=== PATIENT | female | born 1990 | race Caucasian/White ===

== ENCOUNTER 2020-06-26 19:34 | Emergency (ER) | payer BC, OTHER ==
--- NOTE | 2020-06-26 19:45 | ED ---
Abdominal Pain HPI - General Chief Complaint: Abdominal Pain Stated Complaint: Abd Pain Time Seen by Provider: 06/26/20 19:43 Source: patient Mode of arrival: wheelchair Limitations: no limitations - History of Present Illness Initial Comments: 30-year-old female presenting to the emergency department with a chief complaint of abdominal pain. Patient reports the pain has been present for the past couple of years. Patient reports the pain feels like a burning sensation in epigastric region and radiates to her throat particularly at night whenever she goes to bed. Patient reports waking up in the morning with a sore throat and vomits a few times per week. Patient states she saw her primary care physician told her that she might have a stomach ulcer. Patient denies drinking carbonated drinks or coffee. However, patient states she drinks about 6 vodka drinks per day, sometimes a more. Patient denies any back pain, dysuria, urgency or frequency. - Related Data Previous Rx's Medication Instructions Recorded Pantoprazole Sodium [Protonix] 20 mg PO DAILY #30 tablet. 06/26/20 Allergies Allergy/AdvReac Type Severity Reaction Status Date / Time Penicillins Allergy Unknown Verified 06/26/20 20:55 Childhood Review of Systems ROS Statement: Those systems with pertinent positive or pertinent negative responses have been documented in the HPI. ROS Other: All systems not noted in ROS Statement are negative. Past Medical History Past Medical History: No Reported History History of Any Multi-Drug Resistant Organisms: None Reported Past Surgical History: No Surgical Hx Reported Past Psychological History: No Psychological Hx Reported Smoking Status: Never smoker Past Alcohol Use History: Occasional Past Drug Use History: None Reported General Exam Limitations: no limitations General appearance: alert, in no apparent distress Head exam: Present: atraumatic, normocephalic, normal inspection Eye exam: Present: normal appearance, PERRL, EOMI Pupils: Present: normal accommodation ENT exam: Present: normal exam, normal oropharynx, mucous membranes moist Neck exam: Present: normal inspection, full ROM. Absent: tenderness Respiratory exam: Present: normal lung sounds bilaterally. Absent: respiratory distress, wheezes, rales Cardiovascular Exam: Present: regular rate, normal rhythm, normal heart sounds GI/Abdominal exam: Present: soft, tenderness (Epigastric tenderness). Absent: distended, guarding, rebound, rigid Extremities exam: Present: normal inspection, full ROM, normal capillary refill Back exam: Present: normal inspection, full ROM. Absent: tenderness, CVA tenderness (R), CVA tenderness (L) Neurological exam: Present: alert, oriented X3 Psychiatric exam: Present: normal affect, normal mood Skin exam: Present: warm, dry, intact, normal color Course Vital Signs 06/26/20 06/26/20 06/26/20 19:35 20:18 21:32 Temperature 98.7 F 98.5 F Pulse Rate 99 89 77 Respiratory 19 17 16 Rate Blood Pressure 134/96 129/80 116/68 O2 Sat by Pulse 98 96 96 Oximetry Medical Decision Making - Medical Decision Making 30-year-old female presenting to the emergency department with a chief complaint of abdominal pain. On physical examination, patient has mild epigastric abdominal tenderness. CBC unremarkable. CMP reveals transaminitis with elevated AST and ALT. UA is negative. Patient is not . Serum alcohol is 392. Patient did not appear to be severely intoxicated on evaluation. She did later reveal that she is a chronic alcohol drinker. The symptoms she is describing are likely relating to acid reflux or possible peptic ulcer. Patient was given IV fluids, antiemetics and Protonix. I did offer a GI cocktail, she declined. Her fianc was also present in the room and this information was discussed with him. I did advise the patient if she continues to drink she could go into liver failure. I did offer the patient psychiatric evaluation, she declined. She denies any homicidal, suicidal thoughts or ideations. I also offered community resources for alcohol addiction, she declined. I discharged the patient with Protonix. Advised to follow-up with the primary care doctor. I strongly advised her to stop drinking. Strict return parameters were thoroughly discussed the patient and her fianc were understanding and agreeable. Case discussed with physician. - Lab Data Result diagrams: 06/26/20 20:18 06/26/20 20:18 Lab Results 06/26/20 06/26/20 06/26/20 Range/Units 20:01 20: 20:18 WBC 6.4 (3.8-10.6) k/uL RBC 4.46 (3.80-5.40) m/uL Hgb 15.4 (11.4-16.0) gm/dL Hct 46.4 H (34.0-46.0) % MCV 104.2 H (80.0-100.0) fL MCH 34.5 (25.0-35.0) pg MCHC 33.1 (31.0-37.0) g/dL RDW 13.3 (11.5-15.5) % Plt Count 238 (150-450) k/uL MPV 6.9 Neutrophils % (Manual) 34 % Lymphocytes % (Manual) 56 % Monocytes % (Manual) 6 % Eosinophils % (Manual) 3 % Basophils % (Manual) 1 % Neutrophils # (Manual) 2.18 (1.3-7.7) k/uL Lymphocytes # (Manual) 3.58 (1.0-4.8) k/uL Monocytes # (Manual) 0.38 (0-1.0) k/uL Eosinophils # (Manual) 0.19 (0-0.7) k/uL Basophils # (Manual) 0.06 (0-0.2) k/uL Nucleated RBCs 0 (0-0) /100 WBC Manual Slide Review Performed Reactive Lymphocytes Present Macrocytosis Slight Sodium (137-145) mmol/L Potassium (3.5-5.1) mmol/L Chloride (98-107) mmol/L Carbon Dioxide (22-30) mmol/L Anion Gap mmol/L BUN (7-17) mg/dL Creatinine (0.52-1.04) mg/dL Est GFR (CKD-EPI)AfAm (>60 ml/min/1.73 sqM) Est GFR (CKD-EPI)NonAf (>60 ml/min/1.73 sqM) Glucose (74-99) mg/dL Calcium (8.4-10.2) mg/dL Total Bilirubin (0.2-1.3) mg/dL AST (14-36) U/L ALT (4-34) U/L Alkaline Phosphatase (38-126) U/L Total Protein (6.3-8.2) g/dL Albumin (3.5-5.0) g/dL Lipase (23-300) U/L Urine Color Colorless Urine Appearance Cloudy H (Clear) Urine pH 6.0 (5.0-8.0) Ur Specific Moore 1.004 (1.001-1.035) Urine Protein Negative (Negative) Urine Glucose (UA) Negative (Negative) Urine Ketones Negative (Negative) Urine Blood Negative (Negative) Urine Nitrite Negative (Negative) Urine Bilirubin Negative (Negative) Urine Urobilinogen <2.0 (<2.0) mg/dL Ur Leukocyte Esterase Negative (Negative) Urine RBC <1 (0-5) /hpf Urine WBC <1 (0-5) /hpf Ur Squamous Epith Cells 1 (0-4) /hpf Urine HCG, Qual Not Detected (Not Detectd) Serum Alcohol mg/dL 06/26/20 Range/Units 20:18 WBC (3.8-10.6) k/uL RBC (3.80-5.40) m/uL Hgb (11.4-16.0) gm/dL Hct (34.0-46.0) % MCV (80.0-100.0) fL MCH (25.0-35.0) pg MCHC (31.0-37.0) g/dL RDW (11.5-15.5) % Plt Count (150-450) k/uL MPV Neutrophils % (Manual) % Lymphocytes % (Manual) % Monocytes % (Manual) % Eosinophils % (Manual) % Basophils % (Manual) % Neutrophils # (Manual) (1.3-7.7) k/uL Lymphocytes # (Manual) (1.0-4.8) k/uL Monocytes # (Manual) (0-1.0) k/uL Eosinophils # (Manual) (0-0.7) k/uL Basophils # (Manual) (0-0.2) k/uL Nucleated RBCs (0-0) /100 WBC Manual Slide Review Reactive Lymphocytes Macrocytosis Sodium 144 (137-145) mmol/L Potassium 4.1 (3.5-5.1) mmol/L Chloride 113 H (98-107) mmol/L Carbon Dioxide 18 L (22-30) mmol/L Anion Gap 13 mmol/L BUN 7 (7-17) mg/dL Creatinine 0.67 (0.52-1.04) mg/dL Est GFR (CKD-EPI)AfAm >90 (>60 ml/min/1.73 sqM) Est GFR (CKD-EPI)NonAf >90 (>60 ml/min/1.73 sqM) Glucose 110 H (74-99) mg/dL Calcium 9.6 (8.4-10.2) mg/dL Total Bilirubin 0.7 (0.2-1.3) mg/dL AST 173 H (14-36) U/L ALT 121 H (4-34) U/L Alkaline Phosphatase 60 (38-126) U/L Total Protein 7.9 (6.3-8.2) g/dL Albumin 4.6 (3.5-5.0) g/dL Lipase 271 (23-300) U/L Urine Color Urine Appearance (Clear) Urine pH (5.0-8.0) Ur Specific Moore (1.001-1.035) Urine Protein (Negative) Urine Glucose (UA) (Negative) Urine Ketones (Negative) Urine Blood (Negative) Urine Nitrite (Negative) Urine Bilirubin (Negative) Urine Urobilinogen (<2.0) mg/dL Ur Leukocyte Esterase (Negative) Urine RBC (0-5) /hpf Urine WBC (0-5) /hpf Ur Squamous Epith Cells (0-4) /hpf Urine HCG, Qual (Not Detectd) Serum Alcohol 392 H* mg/dL Disposition Clinical Impression: Transaminitis, Alcohol intoxication Disposition: HOME SELF-CARE Condition: Stable Instructions (If sedation given, give patient instructions): Cirrhosis (ED) Additional Instructions: Follow-up with the primary care physician. Seek help for alcohol addiction. See prescribe medication as directed. Stop drinking alcohol. Prescriptions: Pantoprazole Sodium [Protonix] 20 mg PO DAILY #30 tablet.dr Is patient prescribed a controlled substance at d/c from ED?: No Referrals: Nonstaff,Physician [REFERRING] - 1-2 days Time of Disposition: 22:52
[2020-06-26] MEDS ORDERED: ONDANSETRON 4 MG/2 ML VIAL IVP STA (20:00)
[2020-06-26] MEDS ORDERED: SODIUM CHLORIDE 0.9% 1,000 ML IV STA (20:00)
[2020-06-26] MEDS ORDERED: PANTOPRAZOLE 40 MG/10 ML VIAL IVP STA (20:00)
[2020-06-26 20:40] LABS: Chloride 113 mmol/L (98-107)
[2020-06-26 20:42] LABS: ALT 121 U/L (4-34); AST 173 U/L (14-36); African American GFR (CKD) >90 (>60 ml/min/1.73 sqM); Albumin 4.6 g/dL (3.5-5.0); Alkaline Phosphatase 60 U/L (38-126); Anion Gap 13 mmol/L; Blood Urea Nitrogen 7 mg/dL (7-17); Calcium 9.6 mg/dL (8.4-10.2); Carbon Dioxide 18 mmol/L (22-30); Glucose 110 mg/dL (74-99); Lipase 271 U/L (23-300); Non-African American GFR(CKD) >90 (>60 ml/min/1.73 sqM); Potassium 4.1 mmol/L (3.5-5.1); Sodium 144 mmol/L (137-145); Total Bilirubin 0.7 mg/dL (0.2-1.3); Total Protein 7.9 g/dL (6.3-8.2)
[2020-06-26 20:43] LABS: Appearance,Urine Cloudy (Clear); Bilirubin,Urine Negative (Negative); Blood,Urine Negative (Negative); Color,Urine Colorless; Glucose,Urine (UA) Negative (Negative); Ketones,Urine Negative (Negative); Leukocyte Esterase,Urine Negative (Negative); Nitrite,Urine Negative (Negative); Protein,Urine Negative (Negative); RBC,Urine <1 /hpf (0-5); Specific Gravity,Urine 1.004 (1.001-1.035); Squamous Epithelial Cell,Urine 1 /hpf (0-4); Urobilinogen,Urine <2.0 mg/dL (<2.0); WBC,Urine <1 /hpf (0-5)
[2020-06-26] MEDS ORDERED: MAG HYDROX/AL HYDROX/SIMETH 30 ML, HYOSCYAMINE ELIXIR 10 ML, LIDOCAINE VISCOUS 2% 10 ML PO STA ×3 (20:44)
[2020-06-26 20:51] LABS: HCT 46.4 % (34.0-46.0); HGB 15.4 gm/dL (11.4-16.0); MCH 34.5 pg (25.0-35.0); MCHC 33.1 g/dL (31.0-37.0); MCV 104.2 fL (80.0-100.0); Macrocytosis Slight; Mean Platelet Volume 6.9; Platelet Count 238 k/uL (150-450); RBC 4.46 m/uL (3.80-5.40); RDW 13.3 % (11.5-15.5); WBC 6.4 k/uL (3.8-10.6)
[2020-06-26 20:52] LABS: Alcohol 392 mg/dL
[2020-06-26 21:34] VITALS: BP 116/68; PULSE 77; RESP 16; TEMP 98.5
[2020-06-26 21:37] LABS: Basophils # (M) 0.06 k/uL (0-0.2); Eosinophils # (M) 0.19 k/uL (0-0.7); Lymphocytes # (M) 3.58 k/uL (1.0-4.8); Monocytes # (M) 0.38 k/uL (0-1.0); Neutrophils # (M) 2.18 k/uL (1.3-7.7); Neutrophils % (M) 34 %; Nucleated Red Blood Cells 0 /100 WBC (0-0); Reactive Lymphocytes Present; Total Cells Counted 100
== END 2020-06-26 21:38 | disposition home or self-care (01) ==
LOC: EC 19:34
DX: R10.13 Epigastric pain (principal); R11.10 Vomiting, unspecified; R74.01 Elevation of levels of liver transaminase levels; R74.02 Elevation of levels of lactic acid dehydrogenase [LDH]; F10.129 Alcohol abuse with intoxication, unspecified; Z88.0 Allergy status to penicillin; Y90.8 Blood alcohol level of 240 mg/100 ml or more
CPT/HCPCS: 36415; 80053; 83690; 85025; 81001; 81025; 80320; 99284; 96374; 96375; 96361; J2405; C9113

== ENCOUNTER 2021-09-19 13:55 | Emergency (ER) | payer BC ==
[2021-09-19 14:08] VITALS: TEMP 98.1
[2021-09-19] MEDS ORDERED: DIPH,PERTUS(ACELL)TETVAC-LF 0.5 ML VIAL IM ONE (14:32)
[2021-09-19] MEDS ORDERED: CLINDAMYCIN 150 MG CAP PO STA (14:38)
[2021-09-19] MEDS ORDERED: AMOXIC-POT CLAV 875-125MG 1 EACH TAB PO STA (14:45)
--- NOTE | 2021-09-19 14:59 | ED ---
Animal Bite HPI - General Chief Complaint: Animal Bite Stated Complaint: Animal bite-12 weeks preg. Time Seen by Provider: 09/19/21 14:13 Source: patient Mode of arrival: ambulatory Limitations: no limitations - History of Present Illness Initial Comments: Patient is a 31-year-old female who presents for evaluation of cat bite/scratches. Patient states she got a new electric recliner and her daughter went to put the foot rest away with the control when the cat's tail got stuck in the foot rest. Patient states she went to try to lift the recliner to help the cat out and the cat bit and scratched her. Patient has wounds on the fingers, hands, left arm, right knee. She expresses concern that she will develop infection as this is happened to her before from a previous cat bite. Patient has no concern with rabies. Patient is currently in the first trimester. Last tetanus is unknown. - Related Data Previous Rx's Medication Instructions Recorded Pantoprazole Sodium [Protonix] 20 mg PO DAILY #30 tablet. 06/26/20 Amoxic-Pot Clav 875-125Mg 1 tab PO BID 7 Days #14 tab 09/19/21 [Augmentin 875-125] Allergies Allergy/AdvReac Type Severity Reaction Status Date / Time Penicillins Allergy Unknown Verified 09/19/21 14:08 Childhood Review of Systems ROS Statement: Those systems with pertinent positive or pertinent negative responses have been documented in the HPI. ROS Other: All systems not noted in ROS Statement are negative. Past Medical History Past Medical History: No Reported History History of Any Multi-Drug Resistant Organisms: None Reported Past Surgical History: No Surgical Hx Reported Past Psychological History: No Psychological Hx Reported Smoking Status: Never smoker Past Alcohol Use History: Occasional Past Drug Use History: None Reported General Exam Limitations: no limitations General appearance: alert, in no apparent distress Head exam: Present: atraumatic, normocephalic, normal inspection Eye exam: Present: normal appearance, PERRL, EOMI. Absent: scleral icterus, conjunctival injection, periorbital swelling ENT exam: Present: normal exam, mucous membranes moist Neck exam: Present: normal inspection. Absent: tenderness, meningismus, lymphadenopathy Respiratory exam: Present: normal lung sounds bilaterally. Absent: respiratory distress, wheezes, rales, rhonchi, stridor Cardiovascular Exam: Present: regular rate, normal rhythm, normal heart sounds. Absent: systolic murmur, diastolic murmur, rubs, gallop, clicks GI/Abdominal exam: Present: soft, normal bowel sounds. Absent: distended, tende rness, guarding, rebound, rigid Extremities exam: Present: other (Bite wound on the right fourth finger. Scratches on the bilateral palms. 2 bite wounds on the left forearm laterally and medially. scratch on the right knee) Neurological exam: Present: alert, oriented X3, CN II-XII intact Psychiatric exam: Present: normal affect, normal mood Skin exam: Present: warm, dry, intact, normal color. Absent: rash Course Vital Signs 09/19/21 09/19/21 14:05 15:03 Temperature 98.1 F Pulse Rate 100 78 Respiratory 20 18 Rate Blood Pressure 176/83 168/78 O2 Sat by Pulse 99 98 Oximetry Medical Decision Making - Medical Decision Making This is a 31-year-old female who presents for evaluation of cat bites/scratches. Thorough history and examination were performed. There is a bite wound on the right fourth finger and 2 on the left forearm. There are small scratches on the bilateral palms and one on the right knee. Last tetanus is unknown. Patient given tetanus booster. The wounds were explored and irrigated thoroughly. Closure is not indicated. Patient was given first dose of Augmentin as she reports she tolerated this medication previously despite allergy to penicillin. Patient will be discharged with Augmentin prescription. Wound care education was provided. Return parameters were discussed. Patient verbalizes understanding and is agreeable to this plan. Dr. Carney is my attending. Disposition Clinical Impression: Cat bite Disposition: HOME SELF-CARE Instructions (If sedation given, give patient instructions): Animal Bite (ED) Additional Instructions: Please take medication as directed. Keep wounds clean and dry. Return to the emergency department if you experience new, concerning, or worsening symptoms. Prescriptions: Amoxic-Pot Clav 875-125Mg [Augmentin 875-125] 1 tab PO BID 7 Days #14 tab Is patient prescribed a controlled substance at d/c from ED?: No Referrals: Rosario Song DO [Primary Care Provider] - 1-2 days Time of Disposition: 14:59
[2021-09-19 15:04] VITALS: BP 168/78; PULSE 78; RESP 18
== END 2021-09-19 15:03 | disposition home or self-care (01) ==
LOC: EC 13:55
DX: O9A.211 Injury, poisoning and certain other consequences of external causes complicating pregnancy, first trimester (principal); S61.254A Open bite of right ring finger without damage to nail, initial encounter; S51.852A Open bite of left forearm, initial encounter; Z23 Encounter for immunization; Z88.0 Allergy status to penicillin; Z3A.12 12 weeks gestation of pregnancy; W55.01XA Bitten by cat, initial encounter
CPT/HCPCS: 90471; 90715; 99283

== ENCOUNTER → 2023-10-10 | Outpatient (CLI) | payer OTHER ==
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
== END | disposition home or self-care (01) ==
LOC: RADCTMAIN 10-05 13:24
PROVIDERS: ATTEND Student in an Organized Health Care Education/Training Program
DX: H05.221 Edema of right orbit (principal); S09.90XS Unspecified injury of head, sequela; S09.93XS Unspecified injury of face, sequela; X58.XXXS Exposure to other specified factors, sequela
CPT/HCPCS: 70486